=== PATIENT | female | born 1980 | race Asian ===

== ENCOUNTER → 2016-12-26 | Outpatient (CLI) | payer BC ==
--- NOTE | 2016-12-26 14:35 | DIAGNOSTIC IMAGING REPORT ---
LEFT KNEE 3 VIEWS CLINICAL HISTORY: Left knee pain after running. COMPARISON: None FINDINGS: There is slight lateral patellar tilt. Alignment of left knee is otherwise anatomic. No fracture or osseous lesion is identified on this exam. There is a trace left knee joint effusion. There is spurring of the patella at the insertion of the quadriceps. Joint spaces are preserved. IMPRESSION: 1. No acute fracture. 2. Trace left knee joint effusion. 3. Superior patellar spurring at the insertion of the quadriceps. Electronically signed by: Garry Parrish M.D. 12/26/2016 2:34 PM Dictated Date/Time: 12/26/2016 2:33 PM
== END | disposition home or self-care (01) ==
LOC: C.RDSM 14:21
PROVIDERS: ATTEND Family Medicine
DX: M25.562 Pain in left knee (principal); M25.462 Effusion, left knee

== ENCOUNTER 2021-03-16 05:39 | Inpatient (IN) ==
--- NOTE | 2021-03-09 08:43 | Anesthesiology Consultation ---
Date of Service March 09, 2021 Assessment & Plan (1) Encounter for pre-operative examination: Chart Review Chart Review: entry manager initiated Per nursing assessment 03/08/2021, patient denies any recent travel. No known Covid infection in the past 90 days. Patient is vaccinated for Covid. No known Covid positive contacts or Covid related symptoms. Preop Covid testing 03/14/21=will await results. Pt following with [facility]- last seen 02/20/21= during currently - left heart enlargement was discovered. Pt has been following routinely with clinic with serial ECHOs. For past three visits, left ventricle and atrium have remained top normal to mildly enlarged without progression. No abnormal myocardial architecture, pericardial effusion, rhythm disturbances or significant valvular abnormalities. No overt reason found for mild left heart enlargement with family history, infectious review of systems or on hemodynamic monitor evaluation of the 's cardiovascular status. Differential for this includes top normal variation of heart dimensions, genetic versus acquired cardiomyopathy, and less likely some volume loading lesion to the left heart, which may include pulmonary AVM or other unrecognized chance of cardiovascular origin. Left heart enlargement is certainly not due to valvular dysfunction as both the mitral valve and aortic valve are normal in function. Cardio feels that the past 3 echocardiograms are reassuring and patient does not need to continue to follow-up with life but would recommend close follow-up. It is recommended that patient can deliver at [facility] unless new concerns arise. She is cleared for either vaginal or delivery from a cardiovascular standpoint. The should be evaluated with routine pediatric care in the period and should also have an echocardiogram and electrocardiogram within the first 24 hours of life to ensure infant's cardiovascular status is stable. Per notefetal clinic will communicate with pediatric cardiology team at [facility] about these results and could certainly transfer if any clinical concerns arise. If ECHO and EKG remain benign - would recommend 1-2 week fol low up in our [place] office to reassess the chart. (Did speak with Healther from OB office- this is noted in patient's chart and pediatric brazing furnace operator will order ECHO and EKG for patient's baby) History Surgery Operation Date: 03/16/21 10:35 Proposed Procedures p Section in LD - Tammy Rain MD, FACOG Height/Weight Height: 5 ft 3 in Weight: 63.049 kg Allergies Allergy/AdvReac Type Severity Reaction Status Date / Time No Known Drug Allergies Allergy Verified 03/08/21 10:22 Medications Home Medications Medication Instructions Recorded Confirmed Last Taken prenat.vits,yifan,ttj-bkxe-akund 1 tab PO DAILY 09/06/20 03/08/21 Unknown breast pump #1 ea 03/01/21 03/07/21 Unknown Past Medical History Medical History Ankle fracture hx of No pertinent past medical history Past Family History Family History Mother Lung disease, Onset Age: 69 Father Dementia, Onset Age: 83 Denies family history of Ovarian cancer Breast cancer Colorectal cancer Uterine cancer Past Surgical History Surgical History H/O tooth extraction History of appendectomy Social History Smoking Status: Never smoker Do You Dip or Chew Tobacco: No Hx Alcohol Use: Yes (prior to ) Hx Substance Use: No substance use type: does not use Testing Other Testing ECHO Report 12/19/20 (most recent in system) = top normal LV dimensions with normal systolic function. Normal RV dimensions and systolic function. Top normal LA dimensions; normal RA dimensions. Normal valve morphology/function. Normal cardiovascular shunts, heart rate and rhythm. Top normal aortic dimensions with otherwise no vascular abnormalities.
--- NOTE | 2021-03-15 17:26 | History & Physical Report ---
Date of Service March 15, 2021 Assessment & Plan (1) Complete placenta previa nos or without hemorrhage, unspecified trimester: Plan: IUP at 37 weeks for primary LTCS for placenta previa. Placenta is posterior The procedure and the risks were reviewed with the patient including the risk for hemorrhage or bleeding during the C/S that may require hysterectomy . All questions were answered to her satisfaction. History of Present Illness Primary Care Provider: SHAUN Barrett Patient is a 40 yo Syriac female EDC 04/05/21 who presents at 37 weeks for primary LTCS because of placenta previa. She has had no bleeding during the so far. This is an IVF/ICSI and growth scans have been normal. left heart appeared top normal on routine echocardiogram. follow up echos were stable and will be re- evaluated after delivery. GBS (-). also complicated by AMA. Allergies Allergy/AdvReac Type Severity Reaction Status Date / Time No Known Drug Allergies Allergy Verified 03/15/21 09:24 Home Medications Medication Instructions Recorded Confirmed Type prenat.vits,yifan,qws-ndpk-kgrio 1 tab PO DAILY 09/06/20 03/15/21 History breast pump #1 ea 03/01/21 03/15/21 Rx Patient History Medical History Ankle fracture hx of No pertinent past medical history Surgical History H/O tooth extraction History of appendectomy Family History Mother Lung disease, Onset Age: 69 Father Dementia, Onset Age: 83 Denies family history of Ovarian cancer Breast cancer Colorectal cancer Uterine cancer Social History Smoking Status: Never smoker Second Hand Exposure: No; Hx Alcohol Use: Yes (prior to ) Hx Substance Use: No Preferred Language: Estonian Communication Ability: Effective Camp Advisor Required: No Beliefs That Will Affect Care: None marital status: Single Current Living Situation: Alone Current Living Situation Comment: lives alone with dog current occupational status: employed 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 Feels Safe at Home: Yes Review of Systems All systems reviewed & are unremarkable except as noted in HPI & below Physical Exam Constitutional: WD/WN, vitals as above Respiratory: normal respiratory effort, lungs clear to auscultation Cardiovascular: RRR, no murmur, no edema Psychiatric: A+Ox3, euthymic affect Genitourinary: OB Exam Abdomen: + fundal height (34 cm) and + vertex OB Exam Monitor Tracing: + external FHT monitor used, + external uterine monitor used, + category I and + normal FHT variability Coding Level of Care Code None Diagnoses Complete placenta previa nos or without hemorrhage, unspecified trimester O44.00
--- NOTE | 2021-03-16 05:56 | History & Physical Bridge Note ---
Date of Service March 16, 2021 History & Physical Bridge Note I have examined the patient, reviewed the History & Physical and in the interval since the performance of the History & Physical I have noted the following changes of clinical significance: no changes noted
[2021-03-16] MEDS ORDERED: CITRIC ACID/SODIUM CITRATE 15 ML UDC PO SCH (06:00)
[2021-03-16] MEDS ORDERED: ceFAZolin 2000MG 2,000 MG/15 ML SYR IV SCH (06:00)
[2021-03-16] MEDS ORDERED: LACTATED RINGER'S 1,000 ML IV SCH ×2 (06:00)
[2021-03-16] MEDS ORDERED: ceFAZolin 2,000 MG in SYRINGE 0 ML IV SCH (06:00)
[2021-03-16 06:10] LABS: Basophils # (auto) 0.01 K/uL (0-0.2); Basophils % (auto) 0.2 %; Eosinophils # (auto) 0.07 K/uL (0-0.5); Eosinophils % (auto) 1.5 %; Hematocrit (blood only) 37.7 % (37-47); Immature Granulocytes # (auto) 0.01 K/uL (0.00-0.02); Immature Granulocytes % (auto) 0.2 %; Lymphocytes % (auto) 41.8 %; Mean Corpuscular Hemoglobin 32.1 pg (25-34); Mean Corpuscular Volume 93.1 fL (80-100); Mean Platelet Volume 10.4 fL (7.4-10.4); Monocytes # (auto) 0.34 K/uL (0.11-0.59); Monocytes % (auto) 7.1 %; Neutrophils # (auto) 2.36 K/uL (1.4-6.5); Neutrophils % (auto) 49.2 %; Platelet Count 242 K/uL (130-400); RDW Coefficient of Variation 12.5 % (11.5-14.5); RDW Standard Deviation 42.8 fL (36.4-46.3); Red Blood Count 4.05 M/uL (4.2-5.4); White Blood Count 4.79 K/uL (4.8-10.8)
[2021-03-16 06:54] LABS: Mean Corpuscular Hgb Conc 34.5 g/dL (32-36)
[2021-03-16] MEDS ORDERED: MoRPHine SULFATE PF 1 MG/ML 10 ML AMP/VIAL ONE (07:09)
[2021-03-16] MEDS ORDERED: diphenhydrAMINE 50 MG/ML VIAL IV PRN (07:34)
[2021-03-16] MEDS ORDERED: NALOXONE HCL 0.4 MG/1 ML VIAL/CARP IV PRN (07:34)
[2021-03-16] MEDS ORDERED: MEPERIDINE HCL 25 MG/ML CARP/VIAL IV PRN (07:34)
[2021-03-16] MEDS ORDERED: NALOXONE HCL 1 MG in SODIUM CHLORIDE 0.9% 1000ML 1,000 ML IV PRN (07:34)
[2021-03-16] MEDS ORDERED: LACTATED RINGER'S 500 ML IV PRN (07:34)
[2021-03-16] MEDS ORDERED: METOCLOPRAMIDE HCL 10 MG in SODIUM CHLORIDE 0.9% 50 ML IV PRN (07:34)
[2021-03-16] MEDS ORDERED: NALOXONE HCL 0.08 MG in SYRINGE 1.8 ML IV PRN (07:34)
[2021-03-16] MEDS ORDERED: ONDANSETRON INJ 2 MG/ML 2 ML VIAL IV PRN (07:34)
[2021-03-16] MEDS ORDERED: MoRPHine SULFATE PF 1 MG/ML 10 ML AMP/VIAL INT SPINAL ONE (07:34)
[2021-03-16] MEDS ORDERED: MoRPHine SULFATE 2 MG/ML CARP IV PRN (07:34)
[2021-03-16] MEDS ORDERED: HYDROmorphone INJ 0.5 MG/0.5 ML SYR IV PRN (07:34)
[2021-03-16] MEDS ORDERED: ePHEDrine sulfate 50 MG/ML AMP IV PRN (07:34)
[2021-03-16] MEDS ORDERED: PROMETHAZINE HCL 12.5 MG in SODIUM CHLORIDE 0.9% 50 ML IV PRN (07:34)
[2021-03-16] MEDS ORDERED: KETOROLAC 30 MG/ML VIAL IV PRN (07:34)
[2021-03-16] MEDS ORDERED: NALBUPHINE HCL INJ 10 MG/ML AMP IV PRN (07:34)
[2021-03-16] MEDS ORDERED: SODIUM CHLORIDE 0.9% 1000ML 1,000 ML IV SCH (07:45)
[2021-03-16] MEDS ORDERED: DC INTRASPINAL MORPHINE SCH (07:45)
[2021-03-16] MEDS ORDERED: NO NARCOTICS OR SEDATIVES SCH (07:45)
[2021-03-16] MEDS ORDERED: PHENYLEPHRINE 100MCG/ML 5ML SYR ONE (08:25)
[2021-03-16] MEDS ORDERED: OXYTOCIN 10 UNITS/ML VIAL ONE (08:47)
--- NOTE | 2021-03-16 08:55 | Post Operative Brief Note ---
PG Immediate Post Op with CF Date of Surgery March 16, 2021 Pre & Post Diagnosis Operation Date: 03/16/21 07:30 Pre-Op Diagnosis: placenta previa Post-Op Diagnosis: placenta previa I identified the patient and participated in the time-out.: Yes Procedure Operation Date: 03/16/21 07:30 Actual Procedures p Section - Tammy Rain MD, FACOG Surgeon Tammy Rain MD, FACOG Field Hand ELHAM Go MD Estimated Blood Loss 700 Findings Consistent with Post-Op Diagnosis Specimens Specimen Description: placenta-hold Drains Méndez Catheter Anesthesia Type Spinal Complications none Disposition Accompanied Patient To Recovery: Yes
[2021-03-16] MEDS ORDERED: DEXAMETHASONE SOD INJ 4 MG/ML VIAL ONE (08:57)
--- NOTE | 2021-03-16 09:46 | Operative Report ---
PG Post Operative Report Pre & Post Diagnosis Operation Date: 03/16/21 07:30 Pre-Op Diagnosis: placenta previa Post-Op Diagnosis: placenta previa I identified the patient and participated in the time-out.: Yes Procedure Operation Date: 03/16/21 07:30 Actual Procedures p Section - Tammy Rain MD, FACOG Surgeon Tammy Rain MD, FACOG Vamp Wetter LEHAM Go MD Estimated Blood Loss 700 Findings Consistent with Post-Op Diagnosis Specimens placenta Drains Sun to straight drainage- clear urine at end of case Anesthesia Type Spinal Complications none Disposition Accompanied Patient To Recovery: Yes Indications .Patient is a 40-year-old 1 para 0 female who presents for primary section at 37+ weeks because of persistent placenta previa. She has had no bleeding during her . This is an IVF/ICSI . Description of Procedure After the patient received adequate subarachnoid block she was prepped and draped in usual sterile fashion. A low transverse skin incision was made with a scalpel and carried the fascia with the same scalpel. The fascia was then divided transversely with Tineo scissors. The edges were then grasped with Neo clamps and the underlying rectus muscles bluntly sharply dissected off the overlying fascia. The rectus muscle were bluntly divided along the midline and the underlying peritoneum elevated and entered sharply. The bladder was taken down off of the lower uterine segment with Metzenbaum scissors and placed behind the bladder blade. The lower uterine segment was entered with a scalpel and extended transversely in a blunt fashion. Membranes were ruptured for clear fluid. The was delivered from the vertex presentation with the assistance of moderate fundal pressure and vacuum assistance to deliver the head through the uterine incision. The rest of the delivered easily, and was vigorous & crying upon delivery. The was handed off to Dr. Persaud who was in attendance as submarine operator after clamping and cutting the cord. The placenta was then expressed intact with a three-vessel cord after cord blood was obtained. Bleeding along the uterine incision was initially controlled with T clamps. The uterus was exteriorized and covered with a clean lap sponge. Uterine massage and dilute Pitocin were used for hemostasis. An additional 10 units of Pitocin were injected directly into the uterine myometrium. The uterine cavity was then explored and found to have some retained membranes which were removed with ring forceps. The uterus was then closed in 2 layers with a running locking imbricating fashion. 0 Monocryl was the suture. Several bleeding sites along the incision were controlled with [id number]-[id number] stitches of 0 Monocryl. At this point hemostasis was noted be excellent. The uterus was placed back inside the abdominal cavity. The gutters were found to have some clot and fluid present and these were removed. The incision was examined once more and continue to have some bleeding on the right side of the incision. This was again controlled with a pikqxt-gu-lipwv stitch of 0 Monocryl. At this point hemostasis noted to be excellent. The rectus muscle were then brought together on the midline with individual stitches of Monocryl. The fascia was closed in a running fashion with 0 Vicryl. After irrigating the adipose layer the skin edges were reapproximated using a subcuticular stitch of 4-0 Vicryl. Mother and were doing well at the end of the case and were stable upon arrival back in labor and delivery. I attest to the content of the Intraoperative Record and any orders documented therein. Any exceptions are noted below. OB Procedure charges OB Charges 10045
[2021-03-16] MEDS ORDERED: DIPHTHERIA/TETANUS/PERTUSSIS 0.5 ML SYR/VIAL IM ONE (10:07)
[2021-03-16] MEDS ORDERED: MAGNESIUM HYDROXIDE SUSP 30 ML UDC PO PRN (10:07)
[2021-03-16] MEDS ORDERED: BENZOCAINE 20% AER SPR 82.5 GM CAN EXT PRN (10:07)
[2021-03-16] MEDS ORDERED: SENNA 8.6 MG TAB PO PRN (10:07)
[2021-03-16] MEDS ORDERED: HYDROCORTISONE ACETATE 25 MG SUPP PR PRN (10:07)
[2021-03-16] MEDS ORDERED: SUPERCREAM 0.870% 15 GM JAR EXT PRN (10:07)
[2021-03-16] MEDS: OXYTOCIN 20 UNITS in LACTATED RINGER'S 1,000 ML IV SCH ×2 (10:37→19:24)
[2021-03-16] MEDS: SIMETHICONE 80 MG CHEW PO SCH ×3 (13:35→20:39)
--- NOTE | 2021-03-16 14:40 | Anesthesiology Progress Note ---
Date of Service March 16, 2021 Anesthesia Post Procedure Vital Signs Vital Signs: Temp Pulse Resp BP Pulse Ox 03/16/21 11:24 71 100 03/16/21 11:23 73 112/80 03/16/21 11:19 73 100 03/16/21 11:14 72 100 03/16/21 11:13 71 111/79 03/16/21 11:09 70 100 03/16/21 11:04 71 100 03/16/21 11:03 71 18 112/78 03/16/21 10:59 68 100 03/16/21 10:54 67 100 03/16/21 10:53 71 113/76 03/16/21 10:49 77 100 03/16/21 10:44 75 105/79 100 03/16/21 10:39 77 100 03/16/21 10:34 75 107/76 100 03/16/21 10:33 16 03/16/21 10:29 69 100 03/16/21 10:24 72 100 03/16/21 10:23 70 109/70 03/16/21 10:19 68 100 03/16/21 10:14 74 100 03/16/21 10:13 78 109/68 03/16/21 10:09 73 100 03/16/21 10:04 67 100 03/16/21 10:03 36.5 C 62 18 117/73 03/16/21 09:59 68 100 03/16/21 09:54 73 100 03/16/21 09:53 72 18 117/75 03/16/21 09:49 79 100 03/16/21 09:44 80 125/81 100 03/16/21 09:43 18 03/16/21 09:39 72 100 03/16/21 09:34 74 100 03/16/21 09:33 74 18 113/75 03/16/21 09:29 75 100 03/16/21 09:24 75 100 03/16/21 09:23 82 16 117/77 03/16/21 09:19 83 100 03/16/21 09:14 61 100 03/16/21 09:13 71 18 119/74 03/16/21 09:09 59 L 100 03/16/21 09:04 72 99 03/16/21 09:03 36.5 C 72 20 118/73 03/16/21 07:06 71 114/73 03/16/21 05:55 87 18 107/73 03/16/21 05:54 36.7 C 87 18 107/73 Pain Intensity Lower Abdomen: Pain Intensity: 3 Transfer of Care Handoff Completed per policy Notes Mental Status: alert / awake / arousable and participated in evaluation Patient Amnestic to Procedure: Yes Nausea / Vomiting: adequately controlled Pain: adequately controlled Airway Patency, RR, SpO2: stable & adequate BP & HR: stable & adequate Hydration State: stable & adequate Neuraxial Anesthesia: was administered and sensory block resolved Anesthetic Complications: no major complications apparent
[2021-03-16] MEDS: DOCUSATE SODIUM 100 MG CAP PO SCH (20:39)
[2021-03-17] MEDS ORDERED: diphenhydrAMINE Capsule 25 MG CAP PO PRN (01:34)
[2021-03-17] MEDS ORDERED: ONDANSETRON INJ 2 MG/ML 2 ML VIAL IV PRN (01:34)
[2021-03-17] MEDS ORDERED: MEPERIDINE HCL 50 MG/ML CARP IV PRN (01:34)
[2021-03-17] MEDS ORDERED: diphenhydrAMINE 50 MG/ML VIAL IV PRN (01:34)
[2021-03-17] MEDS ORDERED: KETOROLAC 30 MG/ML VIAL IV PRN (01:34)
[2021-03-17] MEDS ORDERED: PROMETHAZINE HCL 25 MG in SODIUM CHLORIDE 0.9% 50 ML IV PRN (01:34)
[2021-03-17] MEDS ORDERED: oxyCODONE/ACETAMINOPHEN 5mg/325mg TAB PO PRN (01:34)
[2021-03-17 06:54] LABS: Basophils # (auto) 0.02 K/uL (0-0.2); Basophils % (auto) 0.2 %; Eosinophils # (auto) 0.03 K/uL (0-0.5); Eosinophils % (auto) 0.3 %; Hemoglobin 11.2 g/dL (12.0-16.0); Immature Granulocytes # (auto) 0.03 K/uL (0.00-0.02); Immature Granulocytes % (auto) 0.3 %; Lymphocytes # (auto) 1.91 K/uL (1.2-3.4); Lymphocytes % (auto) 20.5 %; Mean Corpuscular Hemoglobin 32.2 pg (25-34); Mean Corpuscular Hgb Conc 33.9 g/dL (32-36); Mean Corpuscular Volume 94.8 fL (80-100); Mean Platelet Volume 10.3 fL (7.4-10.4); Monocytes # (auto) 0.72 K/uL (0.11-0.59); Monocytes % (auto) 7.7 %; Neutrophils # (auto) 6.62 K/uL (1.4-6.5); Platelet Count 246 K/uL (130-400); RDW Coefficient of Variation 12.5 % (11.5-14.5); RDW Standard Deviation 43.1 fL (36.4-46.3); Red Blood Count 3.48 M/uL (4.2-5.4); White Blood Count 9.33 K/uL (4.8-10.8)
[2021-03-17] MEDS: FERROUS SULFATE 325 MG TAB PO SCH (07:36)
[2021-03-17] MEDS: DOCUSATE SODIUM 100 MG CAP PO SCH ×2 (07:36→20:17)
[2021-03-17] MEDS: SIMETHICONE 80 MG CHEW PO SCH ×4 (07:37→20:17)
[2021-03-17] MEDS: PRENATAL VITAMIN 1 TAB PO SCH (07:37)
[2021-03-17] MEDS: IBUPROFEN 600 MG TAB PO PRN ×4 (07:37→21:44)
[2021-03-17] MEDS: LACTATED RINGER'S 1,000 ML IV SCH ×2 (07:40→07:41)
--- NOTE | 2021-03-17 08:23 | Obstetrical Progress Note ---
Date of Service March 17, 2021 Assessment & Plan (1) Status post : Plan: 40yo POD 1 s/p LTCS at 37 weeks -Continue routine care, incision site healing well with no signs of infection -Vitals reviewed- HDS, afebrile -Encourage ambulation, advance to regular diet -Pain control with ibuprofen, acetaminophen PRN -Encourage -Hgb 11.2 -patient doing well, discharge likely tomorrow Admission and Anticipated Discharge Date Admission Date: March 16, 2021 Supervising Physician Co-Signing Physician Notes Resident Physician Supervision Note: I was present with Dr. Marquez during the history and exam. I discussed the case with the resident and agree with the findings and plan as documented in the note. Any exceptions or clarifications are listed here: [None] Documented By: Tammy Rain MD, FACOG Subjective POD 1 s/p LCTS. Patient seen and examined at bedside. Reports no acute overnight events. Ambulating and voiding. Has passed gas, not yet stool. Advancing to regular diet w/o N/V. Breast Feeding. Pain 5/10 near incision site. Review of Systems Review of Systems: Denies fevers/chills. Denies dyspnea, cough. Denies chest pain. Denies breast pain or discharge. Denies dysuria. Denies headache. Denies back pain. Physical Exam Physical Exam: General: Alert, oriented, no acute distress Cardiac: Regular rate and rhythm, normal S1, S2. No murmurs appreciated. Respiratory: Clear to auscultation b/l with good air flow entry, symmetric chest rise and fall. No wheezes or crackles. No increased work of breathing or accessory muscle use Abdomen: Soft, nontender, nondistended. Fundus firm and palpable at umbilicus. Surgical incision clean, dry and intact without erythema, warmth or drainage. Bowel sounds appreciated. No guarding or rebound. Skin: No rashes or lesions Extremities: Warm, dry, well-perfused with capillary refill <2s b/l. No lower extremity edema, erythema or swelling. Negative Janice's sign b/l. Results & Data ([facility]) Vital Signs (Past 12 Hours) Vital Signs Temp Pulse Resp BP Pulse Ox 03/17/21 05:15 36.6 C 78 18 101/64 03/17/21 01:30 18 99 03/17/21 01:00 18 98 03/17/21 00:00 18 97 03/16/21 23:20 36.8 C 77 18 103/63 97 03/16/21 23:00 18 97 03/16/21 22:00 18 97 03/16/21 21:00 18 97 Resident Activity Tracking Resident Involvement: Resident Care Provided Care Provided: OB Delivery
[2021-03-17] MEDS ORDERED: bisacodyL 5 MG TABEC PO SCH (20:00)
[2021-03-18] MEDS: IBUPROFEN 600 MG TAB PO PRN ×4 (05:12→23:58)
--- NOTE | 2021-03-18 07:52 | Obstetrical Progress Note ---
Date of Service March 18, 2021 Assessment & Plan (1) Status post : Doing well. Routine care. Plan d/c tomorrow. Day #:: 2 Subjective Ambulation: ambulating normally Voiding: no voiding problems Passing Gas:: Yes Diet Tolerance:: nausea/vomiting Lochia:: Small Feeding Type:: breast feeding Pain controlled. Baby lost some weight. Concerned about breast feeding. Physical Exam Constitutional WD/WN, vitals as above Neck trachea midline, no thyromegaly Cardiovascular Extremities: + edema (tr); no calf tenderness Gastrointestinal (Abdomen) soft, nt, nd ff/nt at u incision c/d/i Results & Data ([facility]) Vital Signs (Past 12 Hours) Vital Signs Temp Pulse Resp BP Pulse Ox 03/17/21 23:45 36.6 C 69 16 131/82 99 03/17/21 20:15 36.8 C 64 16 108/68 98
[2021-03-18] MEDS: FERROUS SULFATE 325 MG TAB PO SCH (08:04)
[2021-03-18] MEDS: SIMETHICONE 80 MG CHEW PO SCH ×4 (08:04→20:04)
[2021-03-18] MEDS: DOCUSATE SODIUM 100 MG CAP PO SCH ×2 (08:04→20:04)
[2021-03-18] MEDS: PRENATAL VITAMIN 1 TAB PO SCH (08:04)
[2021-03-18 08:19] LABS: Hematocrit (blood only) 33.2 % (37-47); Hemoglobin 10.9 g/dL (12.0-16.0)
[2021-03-18] MEDS ORDERED: bisacodyL 10 MG SUPP PR PRN (09:20)
[2021-03-19] MEDS: IBUPROFEN 600 MG TAB PO PRN ×2 (05:40→10:34)
--- NOTE | 2021-03-19 07:15 | Obstetrical Progress Note ---
Date of Service March 19, 2021 Assessment & Plan (1) Status post : Doing well. PLan d/c home. Instructions given. Day #:: 3 Subjective Ambulation: ambulating normally Voiding: no voiding problems Passing Gas:: Yes Diet Tolerance:: regular diet Lochia:: Small Feeding Type:: breast feeding Pain controlled Physical Exam Constitutional WD/WN, vitals as above Neck trachea midline, no thyromegaly Cardiovascular Extremities: no calf tenderness and no edema Gastrointestinal (Abdomen) soft, nt, nd ff/nt 1 below u incision c/d/i Results & Data ([facility]) Vital Signs (Past 12 Hours) Vital Signs Temp Pulse Resp BP Pulse Ox 03/18/21 23:55 36.6 C 69 16 121/76 99 03/18/21 20:00 36.7 C 71 16 118/77 98
[2021-03-19] MEDS: PRENATAL VITAMIN 1 TAB PO SCH (08:58)
[2021-03-19] MEDS: SIMETHICONE 80 MG CHEW PO SCH (08:58)
[2021-03-19] MEDS: DOCUSATE SODIUM 100 MG CAP PO SCH (08:58)
[2021-03-19] MEDS: FERROUS SULFATE 325 MG TAB PO SCH (08:58)
--- NOTE | 2021-03-20 01:34 | Discharge Summary (DS) ---
DATE OF ADMISSION: 03/16/2021 DATE OF DISCHARGE: 03/19/2021. PRINCIPAL DIAGNOSES: Intrauterine at term, IVF ICSI , placenta previa. PROCEDURE: Primary low transverse section. HISTORY: The patient is a 40-year-old 1, para 0 female who presents for primary sec tion at 37+ weeks because of persistent placenta previa. She has had no bleeding during the pregnanc y. The was complicated by advanced maternal age and IVF ICSI gestation. The primary low t ransverse section was done without any complications. She had an uncomplicated postop cours e. She was eating regular diet on her first postop day voiding and ambulating without difficulty as well on her first postop day. Her pain was well controlled with oral pain medication. Hemoglobin on admission was 13.0, hematocrit of 37.7. First postop day, hemoglobin 11.2, hematocrit 33.0. Second postop day, hemoglobin 10.9, hematocrit 33.2. She was sent home in good condition with prescription s for Motrin 600 mg p.o. q. 6 hours p.r.n. pain, Percocet 1 tablet p.o. q. 6 hours p.r.n. pain. She is to call for a temperature of 101 degrees or higher, heavy vaginal bleeding, burning with urination , increased redness, drainage or pain in her incision, calf tenderness or any other concerns. She is to be seen in the office in 6 weeks for a postoperative exam. Job ID: [id number]
== END 2021-03-19 13:08 | disposition home or self-care (01) | DRG 788 ==
LOC: 4S1 05:39 → EDSTATUS 10:35 → 4S2 11:30